=== PATIENT | male | born 1980 | race Caucasian/White ===

== ENCOUNTER 2017-09-07 11:16 | Emergency (ER) | payer SELFPAY ==
[~2017-09-07] VITALS: Ht 185.4 cm; Wt 93.0 kg
== END 2017-09-07 14:26 | disposition home or self-care (01) ==
LOC: ER 11:16
DX: S61.011A Laceration without foreign body of right thumb without damage to nail, initial encounter (principal); Z23 Encounter for immunization; W26.0XXA Contact with knife, initial encounter
CPT/HCPCS: 12002; 90471; 90714; 99283